=== PATIENT | male | born 1965 | race Asian ===

== ENCOUNTER → 2017-04-13 | Outpatient (CLI) | payer OTHER ==
[2017-04-13 10:41] LABS: ALT/SGPT 24 U/L (12-78); BLOOD UREA NITROGEN 14 mg/dl (7-18); CARBON DIOXIDE 30 mmol/L (21-32); CHLORIDE 106 mmol/L (98-107); GLUCOSE 95 mg/dl (70-99); POTASSIUM 4.2 mmol/L (3.5-5.1); SODIUM 143 mmol/L (136-145)
[2017-04-13 10:42] LABS: CALCIUM 9.2 mg/dl (8.5-10.1)
[2017-04-13 10:44] LABS: ALB/GLOB RATIO 1.2 (0.9-2); ALKALINE PHOSPHATASE 45 U/L (45-117); AST/SGOT 18 U/L (15-37)
[2017-04-18 18:52] LABS: HEP B QUANT LOG IU/ML 3.33 Log IU/mL (<1.30)
== END | disposition home or self-care (01) ==
LOC: C.LAB1850 09:23
PROVIDERS: ATTEND Internal Medicine Infectious Disease
DX: B18.1 Chronic viral hepatitis B without delta-agent (principal)